=== PATIENT | male | born 1980 | race Caucasian/White ===

== ENCOUNTER 2018-07-26 22:00 | Emergency (ER) | payer OTHER ==
[~2018-07-26] VITALS: Ht 177.8 cm; Wt 117.9 kg
--- NOTE | 2018-07-26 22:23 | NUR ---
RECEIVED PATIENT IN ER 2B WITH C/O LOWER BACK PAIN X 2 DAYS. 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 AAOX3, NO NUMBNESS OR TINGLNG, ABLE TO AMBULAE WITHOUT DIFFICULTY, PATIENT STATES PAIN WORST ON STANDING. WAITING TO BE EVALUATED BY ER
[2018-07-26] MEDS ORDERED: CYCLOBENZAPRINE HCL 10 MG TABLET PO ONE (22:45)
[2018-07-26] MEDS ORDERED: HYDROMORPHONE 1 MG/1 ML DISP.SYRIN IM ONE (22:45)
[2018-07-26] MEDS ORDERED: ONDANSETRON ODT 4 MG TAB.RAPDIS SL ONE (22:45)
[2018-07-26] MEDS ORDERED: ONDANSETRON ODT 4 MG TAB.RAPDIS ONE (22:47)
[2018-07-26] MEDS ORDERED: CYCLOBENZAPRINE HCL 10 MG TABLET ONE (22:48)
[2018-07-26] MEDS ORDERED: HYDROMORPHONE 1 MG/1 ML DISP.SYRIN ONE ×2 (22:49→22:57)
--- NOTE | 2018-07-26 22:59 | NUR ---
MEDICATED FOR PAIN, XRAY BEING DONE AT BEDSIDE.
--- NOTE | 2018-07-26 23:42 | NUR ---
PATIENT STILL C/O PAIN EVEN AFTER MEDICATIONS, STATES PAIN IS THE SAME, NO RELIEF, DR BLUE NOTIFIED.
[2018-07-27] MEDS ORDERED: ONDANSETRON IV *ER 4 MG/2 ML VIAL IV ONE
--- NOTE | 2018-07-27 | NUR ---
REAVALUATED BY DR BLUE, 22G IV INSERTED, MEDICATED TO BE GIVEN IV.
[2018-07-27] MEDS ORDERED: ONDANSETRON 4 MG/2 ML VIAL ONE (00:01)
[2018-07-27] MEDS ORDERED: HYDROMORPHONE 2 MG/1 ML DISP.SYRIN ONE ×2 (00:01→00:39)
--- NOTE | 2018-07-27 00:07 | NUR ---
MEDICATED WITH DILAUDID 2MG IVP.
--- NOTE | 2018-07-27 00:22 | NUR ---
PATIENT FEELING MUCH BETTER AFTER PAIN MEDICATION. DR BLUE NOTIFIED THAT PATIENT GOT 2MG DILAUDID INSTEAD OF 1MG. DR BLUE CONFIRM OKAY FOR 2MG IVP.
[2018-07-27] MEDS ORDERED: HYDROMORPHONE 1 MG/1 ML DISP.SYRIN IV ONE ×2 (00:30)
--- NOTE | 2018-07-27 01:47 | NUR ---
Patient discharged to home in stable conditon. Written and verbal after care instructions given. Patient verbalizes understanding of instructions. Patient ambulated out of ER with steady gait, no acute signs of distress, VSS, all belongings taken, IV site discontinued.
[2018-07-27 01:49] VITALS: BP 117/64
== END 2018-07-27 01:49 | disposition home or self-care (01) ==
LOC: ER 22:03
DX: M54.5 Low back pain (principal)
CPT/HCPCS: 72100; 96372; 96374; 96375; 96376; 99283; J1170 ×4; J2405; A4663; Q0162